=== PATIENT | male | born 1995 | race Two or more races ===

== ENCOUNTER 2018-04-21 09:18 | Emergency (ER) | payer SELFPAY ==
[~2018-04-21] VITALS: Ht 172.7 cm; Wt 83.0 kg
[2018-04-21 09:23] VITALS: Ht 172.7 cm; Wt 83.0 kg
[2018-04-21 10:05] VITALS: BP 98/60
== END 2018-04-21 10:05 | disposition home or self-care (01) ==
LOC: ED 09:18
DX: H92.01 Otalgia, right ear (principal)